=== PATIENT | male | born 1970 | race Caucasian/White ===

== ENCOUNTER 2017-10-24 18:31 | Emergency (ER) | payer SELFPAY ==
[~2017-10-24] VITALS: Ht 170.2 cm; Wt 83.0 kg
[2017-10-24 18:49] VITALS: Ht 170.2 cm; Wt 83.0 kg
[2017-10-24 20:10] VITALS: BP 165/99
== END 2017-10-24 20:11 | disposition home or self-care (01) ==
LOC: ED 18:31
DX: K08.89 Other specified disorders of teeth and supporting structures (principal)